=== PATIENT | male | born 1970 | race Caucasian/White ===

== ENCOUNTER 2020-01-05 03:26 | Emergency (ER) | payer SELFPAY ==
[~2020-01-05] VITALS: Ht 170.2 cm; Wt 86.2 kg
[2020-01-05 03:29] VITALS: BP 139/93; Ht 170.2 cm; Wt 86.2 kg
== END 2020-01-05 04:29 | disposition other institution (70) ==
LOC: ED 03:26
DX: F10.129 Alcohol abuse with intoxication, unspecified (principal); Z13.9 Encounter for screening, unspecified; E11.9 Type 2 diabetes mellitus without complications
CPT/HCPCS: 82962

== ENCOUNTER 2020-01-05 03:26 | Emergency (ER) | payer OTHER | END 2020-01-05 04:29 | disposition other institution (70) | LOC: ED 03:26 | DX: Z02.89 Encounter for other administrative examinations (principal) ==